=== PATIENT | male | born 1995 | race African-American/Black ===

== ENCOUNTER 2017-10-18 06:41 | Emergency (ER) | payer MEDICAID ==
[~2017-10-18] VITALS: Ht 177.8 cm; Wt 73.0 kg
[2017-10-18 07:26] VITALS: BP 141/71
== END 2017-10-18 09:13 | disposition left against medical advice (07) ==
LOC: ER 07:10
DX: R11.2 Nausea with vomiting, unspecified (principal); R19.7 Diarrhea, unspecified; Z53.21 Procedure and treatment not carried out due to patient leaving prior to being seen by health care provider